=== PATIENT | male | born 1980 | race Caucasian/White ===

== ENCOUNTER 2020-11-08 13:52 | Outpatient (CLI) | payer OTHER, SELFPAY ==
[2020-11-08 15:25] LABS: HIV 1/2 Ab P24 Ag Result Negative (Negative)
== END 2020-11-08 13:53 | disposition home or self-care (01) ==
PROVIDERS: Visit Provider Surgery
DX: Z91.89 Other specified personal risk factors, not elsewhere classified (principal)
CPT/HCPCS: 36415; 86703; G0432

== ENCOUNTER 2021-02-04 14:41 | Outpatient (CLI) | payer OTHER, SELFPAY ==
[2021-02-04 16:04] LABS: HIV 1/2 Ab P24 Ag Result Negative (Negative)
== END 2021-02-04 14:42 | disposition home or self-care (01) ==
LOC: ANHLAB 14:44
PROVIDERS: Visit Provider Surgery
DX: Z91.89 Other specified personal risk factors, not elsewhere classified (principal)
CPT/HCPCS: 36415; 86703; G0432